=== PATIENT | male | born 1940 | race Caucasian/White ===

== ENCOUNTER 2016-08-09 23:17 | Emergency (ER) | payer MEDICARE, OTHER ==
[2016-08-09] MEDS ORDERED: LABETALOL 100 MG/20 ML VIAL ONE (23:46)
[2016-08-09] MEDS ORDERED: SODIUM CHLORIDE 0.9% 1,000 ML ONE (23:46)
== END 2016-08-10 02:25 ==
LOC: ER 23:17
DX: N17.9 Acute kidney failure, unspecified (principal); E87.2 Acidosis; J69.0 Pneumonitis due to inhalation of food and vomit; F03.90 Unspecified dementia, unspecified severity, without behavioral disturbance, psychotic disturbance, mood disturbance, and anxiety; Z66 Do not resuscitate; I16.1 Hypertensive emergency; I48.2 Chronic atrial fibrillation
CPT/HCPCS: 36415; 36600; 71010; 80053; 82803; 83605; 85025; 85610; 85730; 87040; 93005; 96361; 96374; 96376